=== PATIENT | female | born 1965 | race American Indian/Alaskan Native ===

== ENCOUNTER 2017-12-23 19:50 | Emergency (ER) | payer MEDICAID ==
[2017-12-23] MEDS ORDERED: Acetaminophen/HYDROcodone 325-10 MG Tab PO ONE (19:51)
[2017-12-23 20:05] VITALS: BP 129/88
--- NOTE | 2017-12-23 20:13 | EDM.PDOC ---
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: Reports: NSAIDS Left Knee Pain Score (Numeric/FACES): 9 - Related Data Allergies Allergy/AdvReac Type Severity Reaction Status Date / Time No Known Allergies Allergy Verified 12/23/17 20:06 Home Meds: Home Meds Multivitamin [Multi Vitamin Daily] 1 each PO DAILY 07/20/13 [History] Ranitidine [Zantac] 150 mg PO ASDIRECTED 11/07/15 [History] Calcium Carbonate/Vitamin D3 [Calcium 1,000 + D3 Caplet] 2 tab PO DAILY [History] Past Medical History Other HEENT History: wears glasses Gastrointestinal History: Reports: Other (See Below) Other Gastrointestinal History: hernia, no repair, gallstones - Past Surgical History Female Surgical History: Reports: Tubal Ligation Review of Systems - Review of Systems Review Of Systems: ROS reveals no pertinent complaints other than HPI. ED EXAM, GENERAL - Physical Exam Exam: See Below Exam Limited By: No Limitations General Appearance: Alert, WD/WN, Mild Distress, Moderate Distress Ears: Hearing Grossly Normal Throat/Mouth: Normal Voice, No Airway Compromise Head: Atraumatic Neck: Non-Tender, Full Range of Motion Respiratory/Chest: No Respiratory Distress Cardiovascular: Regular Rate, Rhythm GI/Abdominal: Soft, Non-Tender Extremities: Limited Range of Motion, Other (left knee swollen discoloured, tender R/P, NV wnl, gait limited to pain) Neurological: Alert, Oriented, Normal Cognition, No Motor/Sensory Deficits Psychiatric: Tearful Skin Exam: Warm, Dry, Normal Color Lymphatic: No Adenopathy Course - Vital Signs Last Recorded V/S: Last Vital Signs Temp 36.6 C 12/23/17 20:00 Pulse 96 12/23/17 20:00 Resp 14 12/23/17 20:00 BP 129/88 12/23/17 20:00 Pulse Ox 98 12/23/17 20:00 - Orders/Labs/Meds Meds: Medications Discontinued Medications Generic Name Dose Route Start Last Admin Trade Name Freq PRN Reason Stop Dose Admin Hydrocodone Bitart/Acetaminophen 1 tab 12/23/17 20:10 12/23/17 20:17 [place] 325-10 Mg PO 12/23/17 20:11 1 tab ONETIME ONE Administration - Re-Assessments/Exams Free Text/Narrative Re-Assessment/Exam: 12/23/17 21:08 results discussed with pt Departure - Departure Time of Disposition: 21:09 Disposition: Home, Self-Care 01 Condition: Good Clinical Impression: Knee effusion, left Contusion of knee, left Qualifiers: Encounter type: initial encounter Qualified Code(s): S80.02XA - Contusion of left knee, initial encounter - Discharge Information Instructions: Knee Effusion, [id number] Forms: ED Department Discharge Additional Instructions: 1) see clinic tomorrow for MRI SCAN for knee effusion OR ORTHOPEDIC REFERRAL 2) elevate leg as much as possible next 3 to 4 days 3) wear knee immobilizer and use crutches
[2017-12-23] MEDS: Acetaminophen/HYDROcodone 325-10 MG Tab PO ONE (20:17)
[2017-12-23] MEDS ORDERED: Acetaminophen/HYDROcodone 325-10 MG Tab ONE (21:23)
== END 2017-12-23 21:30 | disposition home or self-care (01) ==
LOC: DL.ED 19:50
DX: S80.02XA Contusion of left knee, initial encounter (principal); M25.462 Effusion, left knee; Z79.899 Other long term (current) drug therapy; W01.0XXA Fall on same level from slipping, tripping and stumbling without subsequent striking against object, initial encounter
CPT/HCPCS: 73562; 99283; A9270; 99282

== ENCOUNTER 2019-12-17 15:29 | Emergency (ER) | payer OTHER ==
[2019-12-17 15:51] VITALS: BP 147/86; PULSE 110
[2019-12-17] MEDS ORDERED: Triamcinolone Acetonide 40 MG/ML 1 ML SDV IM ONE (16:11)
--- NOTE | 2019-12-17 16:53 | EDM.PDOC ---
Scribed by Paola Stokes 12/17/19 1614 for Lizy Medina NP ED HPI GENERAL MEDICAL PROBLEM - General Chief Complaint: Skin Complaint Stated Complaint: RASH LEGS AND ARM Time Seen by Provider: 12/17/19 15:58 Source of Information: Reports: Patient, RN, RN Notes Reviewed History Limitations: Reports: No Limitations - History of Present Illness INITIAL COMMENTS - FREE TEXT/NARRATIVE: Patient presents to ER with complaint of rash to legs and arms. States was cutting grass on and developed rash. She has been using Benadryl, hydrocortisone cream and allergy pills. Continues to itch. No open areas. Denies health problems except hypertension. Onset Date: 12/15/19 Location: Reports: Generalized Quality: Reports: Other (itching') Severity: Moderate Improves with: Reports: None Worsens with: Reports: None Associated Symptoms: Reports: No Other Symptoms - Related Data Allergies Allergy/AdvReac Type Severity Reaction Status Date / Time No Known Allergies Allergy Verified 12/17/19 15:51 Home Meds: Home Meds Multivitamin [Multi Vitamin Daily] 1 each PO DAILY 07/20/13 [History] Ranitidine [Zantac] 150 mg PO ASDIRECTED 11/07/15 [History] Calcium Carbonate/Vitamin D3 [Calcium 1,000 + D3 Caplet] 2 tab PO DAILY [History] Ergocalciferol (Vitamin D2) [Vitamin D2] 1 cap PO ASDIRECTED 04/03/19 [History] Past Medical History HEENT History: Reports: Impaired Vision Other HEENT History: wears glasses Cardiovascular History: Reports: None Respiratory History: Reports: None Gastrointestinal History: Reports: Cholelithiasis, Other (See Below) Other Gastrointestinal History: hernia, no repair Genitourinary History: Reports: UTI, Recurrent 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: Musculoskeletal History: Reports: Arthritis Neurological History: Reports: None Psychiatric History: Reports: None Endocrine/Metabolic History: Reports: None Hematologic History: Reports: None Immunologic History: Reports: None Oncologic (Cancer) History: Reports: None Dermatologic History: Reports: None - Infectious Disease History Infectious Disease History: Reports: None - Past Surgical History Head Surgeries/Procedures: Reports: None Female Surgical History: Reports: Tubal Ligation Social & Family History - Family History Family Medical History: Noncontributory - Tobacco Use Smoking Status *Q: Never Smoker Second Hand Smoke Exposure: No - Caffeine Use Caffeine Use: Reports: None Other Caffeine Use: 5cups/day - Recreational Drug Use Recreational Drug Use: No - Living Situation & Occupation Living situation: Reports: with Family ED ROS GENERAL - Review of Systems Review Of Systems: Comprehensive ROS is negative, except as noted in HPI. ED EXAM, SKIN/RASH Exam: See Below Exam Limited By: No Limitations General Appearance: Alert, WD/WN, No Apparent Distress Eye Exam: Bilateral Eye: EOMI, Normal Inspection, PERRL Ears: Normal External Exam, Normal Canal, Hearing Grossly Normal, Normal TMs Nose: Normal Inspection, Normal Mucosa, No Blood Throat/Mouth: Normal Inspection, Normal Lips, Normal Teeth, Normal Gums, Normal Oropharynx, Normal Voice, No Airway Compromise Head: Atraumatic, Normocephalic Neck: Normal Inspection, Supple, Non-Tender, Full Range of Motion Respiratory/Chest: No Respiratory Distress, Lungs Clear, Normal Breath Sounds, No Accessory Muscle Use, Chest Non-Tender Cardiovascular: Normal Peripheral Pulses, Regular Rate, Rhythm, No Edema, No Gallop, No JVD, No Murmur, No Rub GI/Abdominal: Normal Bowel Sounds, Soft, Non-Tender, No Organomegaly, No Distention, No Abnormal Bruit, No Mass (Female) Exam: Deferred Rectal (Female) Exam: Deferred Back Exam: Normal Inspection, Full Range of Motion, NT Extremities: Normal Inspection, Normal Range of Motion, Non-Tender, No Pedal Edema, Normal Capillary Refill Neurological: Alert, Oriented, CN II-XII Intact, Normal Cognition, Normal Gait, Normal Reflexes, No Motor/Sensory Deficits Psychiatric: Normal Affect, Normal Mood Skin: Other (erythematous rash--prutitis lower legs bilaterally and lower arms bilaterally.) Lymphatic: No Adenopathy Course - Vital Signs Last Recorded V/S: Last Vital Signs Temp 36.4 C 12/17/19 15:48 Pulse 110 H 12/17/19 15:48 Resp 16 12/17/19 15:48 BP 147/86 H 12/17/19 15:48 Pulse Ox 97 12/17/19 15:48 - Orders/Labs/Meds Meds: Medications Discontinued Medications Generic Name Dose Route Start Last Admin Trade Name Freq PRN Reason Stop Dose Admin Triamcinolone Acetonide 40 mg 12/17/19 16:11 Kenalog-40 IM 12/17/19 16:12 ONETIME ONE Departure - Departure Time of Disposition: 16:30 Disposition: Home, Self-Care 01 Condition: Fair Clinical Impression: Contact dermatitis due to poison medina - Discharge Information *PRESCRIPTION DRUG MONITORING PROGRAM REVIEWED*: No *COPY OF PRESCRIPTION DRUG MONITORING REPORT IN PATIENT JENY: No Instructions: Poison Medina Dermatitis, [id number], Poison [place] Dermatitis, Easy- to-Read Forms: ED Department Discharge Additional Instructions: Continue using Benadryl and Hydrocortisone cream, Calmine lotion May apply cool packs to the area as may decrease itching Follow up with your primary care facility if no improvement Sepsis Event Note - Evaluation Sepsis Screening Result: No Definite Risk - Focused Exam Vital Signs: Vital Signs Temp Pulse Resp BP Pulse Ox 12/17/19 15:48 36.4 C 110 H 16 147/86 H 97 Date Exam was Performed: 12/17/19 Time Exam was Performed: 16:14 I have read and agree with the documentation that has been completed regarding this visit. By signing this record, I attest that the documentation was completed in my physical presence and is an accurate record of the encounter.
== END 2019-12-17 16:29 | disposition home or self-care (01) ==
LOC: DL.ED 15:29
DX: L23.7 Allergic contact dermatitis due to plants, except food (principal); Z79.899 Other long term (current) drug therapy
CPT/HCPCS: 96372; 99282; J3301; 99283

== ENCOUNTER 2020-10-19 23:46 | Emergency (ER) | payer MEDICAID, OTHER ==
[2020-10-20 00:38] VITALS: BP 163/123; PULSE 109
--- NOTE | 2020-10-20 01:07 | EDM.PDOC ---
ED HPI GENERAL MEDICAL PROBLEM - General Chief Complaint: Drug or Alcohol Abuse Stated Complaint: DRANK SOMETHING FUNNY, FEELS WEIRD, DIZZY Time Seen by Provider: 10/20/20 00:27 Source of Information: Reports: Patient, RN History Limitations: Reports: No Limitations - History of Present Illness INITIAL COMMENTS - FREE TEXT/NARRATIVE: 55-year-old female who presents with her significant other requesting for a drug screen. Patient reports 48 hours ago, she was drinking beer at a bar with a friend and some other strangers. She states after drinking her third beer, she felt dizzy with numbness and tingling in her hands and feet. She states her friend took her home and she rested. 24 hours ago, she started having a headache, feeling tired, anxious and unable to sleep. She reports she feels like somebody put something in her drink. She denies any history of drug use. She reports leaving her drink unattended when at the bar to use the bathroom. She denies any fever, chills, shortness of breath, chest pain, palpitation, abdominal problems at this time. Frontal Headache Pain Score (Numeric/FACES): 8 - Related Data Allergies Allergy/AdvReac Type Severity Reaction Status Date / Time No Known Allergies Allergy Verified 10/20/20 00:39 Home Meds: Home Meds Multivitamin [Multi Vitamin Daily] 1 each PO DAILY 07/20/13 [History] Ranitidine [Zantac] 150 mg PO ASDIRECTED 11/07/15 [History] Calcium Carbonate/Vitamin D3 [Calcium 1,000 + D3 Caplet] 2 tab PO DAILY 12/23/17 [History] Ergocalciferol (Vitamin D2) [Vitamin D2] 1 cap PO ASDIRECTED 04/03/19 [History] Past Medical History HEENT History: Reports: Impaired Vision Other HEENT History: wears glasses Cardiovascular History: Reports: None Respiratory History: Reports: None Gastrointestinal History: Reports: Cholelithiasis, Other (See Below) Other Gastrointestinal History: hernia, no repair Genitourinary History: Reports: UTI, Recurrent 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: Musculoskeletal History: Reports: Arthritis Neurological History: Reports: None Psychiatric History: Reports: None Endocrine/Metabolic History: Reports: None Hematologic History: Reports: None Immunologic History: Reports: None Oncologic (Cancer) History: Reports: None Dermatologic History: Reports: None - Infectious Disease History Infectious Disease History: Reports: None - Past Surgical History Head Surgeries/Procedures: Reports: None GI Surgical History: Reports: Cholecystectomy Female Surgical History: Reports: Tubal Ligation Social & Family History - Family History Family Medical History: No Pertinent Family History - Tobacco Use Tobacco Use Status *Q: Current Every Day Tobacco User Years of Tobacco use: 38 Packs/Tins Daily: 0.1 - Caffeine Use Caffeine Use: Reports: Coffee, Soda Other Caffeine Use: 5cups/day - Alcohol Use Date of Last Drink: 10/18/20 - Recreational Drug Use Recreational Drug Use: No - Living Situation & Occupation Living situation: Reports: with Family ED ROS GENERAL - Review of Systems Review Of Systems: Comprehensive ROS is negative, except as noted in HPI. ED EXAM, GENERAL - Physical Exam Exam: See Below Exam Limited By: No Limitations General Appearance: Alert, No Apparent Distress Eye Exam: Bilateral Eye: Normal Inspection Nose: Normal Inspection Throat/Mouth: Normal Oropharynx, No Airway Compromise Head: Atraumatic, Normocephalic Neck: Normal Inspection, Supple Respiratory/Chest: No Respiratory Distress, Lungs Clear, Normal Breath Sounds, No Accessory Muscle Use, Chest Non-Tender Cardiovascular: Normal Peripheral Pulses, No Edema, No Gallop, No JVD, No Murmur, No Rub, Tachycardia GI/Abdominal: Normal Bowel Sounds, Soft, Non-Tender, No Organomegaly, No Distention, No Abnormal Bruit, No Mass Neurological: Alert, Oriented (x3), CN II-XII Intact Psychiatric: Normal Affect, Normal Mood Skin Exam: Warm, Intact Course - Vital Signs Last Recorded V/S: Last Vital Signs Temp 96 F L 10/20/20 00:16 Pulse 109 H 10/20/20 00:16 Resp 18 10/20/20 00:16 BP 163/123 H 10/20/20 00:16 Pulse Ox 100 10/20/20 00:16 - Orders/Labs/Meds Orders: Active Orders 24 hr Category Date Time Status ETOH [ETHANOL BLOOD MEDICAL] [CHEM] Stat Lab 10/20/20 00:42 Received Labs: Laboratory Tests 10/20/20 Range/Units 00:27 Urine Opiates Screen Negative (NEGATIVE) Ur Oxycodone Screen Negative (NEGATIVE) Urine Methadone Screen Negative (NEGATIVE) Ur Barbiturates Screen Negative (NEGATIVE) U Tricyclic Antidepress Negative (NEGATIVE) Ur Phencyclidine Scrn Negative (NEGATIVE) Ur Amphetamine Screen Positive H (NEGATIVE) U Methamphetamines Scrn Positive H (NEGATIVE) Urine MDMA Screen Negative (NEGATIVE) U Benzodiazepines Scrn Negative (NEGATIVE) Urine Cocaine Screen Negative (NEGATIVE) U Marijuana (THC) Screen Negative (NEGATIVE) - Re-Assessments/Exams Free Text/Narrative Re-Assessment/Exam: Reviewed exam findings with patient. Strongly advised to avoid drinking around crowds of people she does not know. Patient verbalized understanding. 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 Also recommended sleep hygiene. Follow-up with PCP in the upcoming week. Sepsis Event Note (ED) - Evaluation Sepsis Screening Result: No Definite Risk - Focused Exam Vital Signs: Vital Signs Temp Pulse Resp BP Pulse Ox 10/20/20 00:16 96 F L 109 H 18 163/123 H 100 - My Orders Last 24 Hours: My Active Orders 10/20/20 00:42 ETOH [ETHANOL BLOOD MEDICAL] [CHEM] Stat - Assessment/Plan Last 24 Hours: My Active Orders 10/20/20 00:42 ETOH [ETHANOL BLOOD MEDICAL] [CHEM] Stat
== END 2020-10-20 01:14 | disposition home or self-care (01) ==
LOC: DL.ED 23:46
DX: F15.23 Other stimulant dependence with withdrawal (principal); Z72.0 Tobacco use
CPT/HCPCS: 36415; 80305-QW; 80307; 99282; 99284

== ENCOUNTER 2021-03-08 05:32 | Day surgery (SDC) | payer MEDICAID ==
[2021-03-08] MEDS ORDERED: Midazolam 1 MG/ML 2 ML SDV IV ONE ×7 (05:33→06:50)
[2021-03-08] MEDS ORDERED: fentaNYL 100 MCG/2 ML SDV IV ONE ×6 (05:33→06:55)
[2021-03-08] MEDS ORDERED: Dextrose 5%-0.45% NaCl 1,000 ML IV SCH (06:00)
[2021-03-08] MEDS ORDERED: fentaNYL 100 MCG/2 ML SDV ONE (06:13)
[2021-03-08] MEDS ORDERED: Midazolam 1 MG/ML 2 ML SDV ONE (06:13)
--- NOTE | 2021-03-08 08:23 | OR ---
DATE: 03/08/2021 PROCEDURES: Total colonoscopy, NBI, and multiple cold snare polypectomies. INSTRUMENT USED: PCF-H190 Olympus video colonoscope. PREMEDICATIONS: Fentanyl 175 mcg intravenous, Versed 4 mg intravenous, nasal O2 cannula. The procedure was done under pulse oximetry, BP recording, and cafeteria monitor. INDICATION: The patient with intermittent diarrhea, long-term. Colonoscopic examination is done for detection of any polypoid lesions and removal, endoscopic hemostasis therapy if needed. DESCRIPTION OF PROCEDURE: Initial rectal exam showed small external hemorrhoidal tags. Rigid anoscopy was normal. The colonoscope was passed with ease up to the ileocecal area. Photographs were taken of the cecum showing couple of diminutive polyps. Photographs were taken. Cold snare polypectomies were done. The tissues were retrieved and sent for histopathology. In the proximal sigmoid and distal descending colon, 3 to 5 mm sized benign-appearing polyps were noted, NBI views were obtained, photographs were obtained, cold snare polypectomies were done, the tissues were retrieved and sent for histopathology. No bleeding was noted from any of the visualized areas at the commencement of the examination. The bowel preparation was found to be adequate, [place] scale 3 in all the areas, total score 9. No stricture. No vascular ectasia. No large isolated ulcerations seen. No evidence of diffuse inflammatory bowel disease in the form of friability, contact bleeding, or ulcerations. Probing the proximal sides of folds and flexures using adequate distention and clearing up the stool material, withdrawal of the scope was made. Diminutive benign-appearing polyps couple of them were noted at the ascending colon, and couple of them in the descending colon, cold snare polypectomies were done, the tissues were retrieved and sent for histopathology. No bleeding was noted from any of the visualized areas at the completion of examination. IMPRESSION: 1. External hemorrhoids. 2. Multiple colonic polyps. The patient tolerated the procedure well. [facility] /[id number]
[2021-03-08 10:03] VITALS: BP 130/82; PULSE 59
== END 2021-03-08 09:19 | disposition home or self-care (01) ==
LOC: DL.ENDO 05:32
PROVIDERS: ATTEND Internal Medicine Gastroenterology
DX: D12.0 Benign neoplasm of cecum (principal); D12.5 Benign neoplasm of sigmoid colon; D12.2 Benign neoplasm of ascending colon; D12.4 Benign neoplasm of descending colon; K64.4 Residual hemorrhoidal skin tags; Z80.0 Family history of malignant neoplasm of digestive organs
CPT/HCPCS: 45385; J2250; J3010; J7042

== ENCOUNTER 2021-06-03 10:28 | Emergency (ER) | payer OTHER, MEDICAID ==
--- NOTE | 2021-06-03 10:54 | EDM.PDOC ---
ED HPI GENERAL MEDICAL PROBLEM - General Chief Complaint: Upper Extremity Injury/Pain Stated Complaint: WORKERS COMP SLIPPED AND HURT RIGHT WRIST Time Seen by Provider: 06/03/21 10:53 Source of Information: Reports: Patient, Old Records, RN, RN Notes Reviewed History Limitations: Reports: No Limitations - History of Present Illness INITIAL COMMENTS - FREE TEXT/NARRATIVE: Pt presents to ER with c/o right wrist injury sustained when she fell at work this morning. Pt c/o pain and laceration to the right wrist. Denies any other injury. Pt states she believes she is due for a Tetanus vaccine. Onset: Today, Sudden Duration: Constant Location: Reports: Upper Extremity, Right Quality: Reports: Ache Severity: Moderate Improves with: Reports: Immobilization, Rest Worsens with: Reports: Other (Palpation), Movement Context: Reports: Other (Fall) Associated Symptoms: Reports: No Other Symptoms Right Wrist Pain Score (Numeric/FACES): 8 - Related Data Allergies Allergy/AdvReac Type Severity Reaction Status Date / Time No Known Allergies Allergy Verified 03/07/21 09:41 Home Meds: Home Meds Calcium Carbonate/Vitamin D3 [Calcium 1,000 + D3 Caplet] 2 tab PO DAILY 12/23/17 [History] Acetaminophen 500 mg PO Q6H PRN 03/07/21 [History] Ferrous Sulfate [Iron] 325 mg PO DAILY 03/07/21 [History] Mv-Mn/Folic Acid/Vit [id number] [Alive Once Daily Women 50 Plus] 1 tab PO DAILY 03/07/21 [History] Naproxen Sodium [Aleve] 220 mg PO ASDIRECTED PRN 03/07/21 [History] QUEtiapine Fumarate [Seroquel Xr] 50 mg PO BEDTIME 03/07/21 [History] buPROPion [buPROPion XL] 150 mg PO DAILY 03/07/21 [History] Past Medical History HEENT History: Reports: Impaired Vision Other HEENT History: wears glasses Cardiovascular History: Reports: Hypertension Respiratory History: Reports: None Gastrointestinal History: Reports: Cholelithiasis, GERD, Other (See Below) Other Gastrointestinal History: hernia, no repair Genitourinary History: Reports: UTI, Recurrent 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: , 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 Musculoskeletal History: Reports: Arthritis, Fracture, Gout, Other (See Below) Other Musculoskeletal History: polyarthralgia Neurological History: Reports: None Psychiatric History: Reports: Depression Endocrine/Metabolic History: Reports: None Hematologic History: Reports: None Immunologic History: Reports: None Oncologic (Cancer) History: Reports: None Dermatologic History: Reports: None - Infectious Disease History Infectious Disease History: Reports: Chicken Pox, Novel Coronavirus - Past Surgical History Head Surgeries/Procedures: Reports: None Cardiovascular Surgical History: Reports: None GI Surgical History: Reports: Cholecystectomy, Colonoscopy, EGD Female Surgical History: Reports: Tubal Ligation Endocrine Surgical History: Reports: None Oncologic Surgical History: Reports: None Social & Family History - Family History Family Medical History: No Pertinent Family History - Caffeine Use Caffeine Use: Reports: Coffee, Soda Other Caffeine Use: 5cups/day - Living Situation & Occupation Living situation: Reports: with Family Occupation: Employed Review of Systems - Review of Systems Review Of Systems: Comprehensive ROS is negative, except as noted in HPI. ED EXAM, GENERAL - Physical Exam Exam: See Below Exam Limited By: No Limitations General Appearance: Alert, WD/WN, No Apparent Distress Throat/Mouth: Normal Voice Head: Atraumatic, Normocephalic Neck: Normal Inspection, Full Range of Motion Respiratory/Chest: No Respiratory Distress Cardiovascular: Normal Peripheral Pulses Extremities: Normal Capillary Refill, Arm Pain (Right wrist tender to palpation with ROM limited by pain, 2.5cm cresent laceration w/no active bleeding, no FB.). No: Joint Swelling Neurological: Alert, Oriented, No Motor/Sensory Deficits Psychiatric: Normal Mood Skin Exam: Warm, Dry, Normal Color ED TRAUMA EXTREMITY PROCEDURES - Laceration/Wound Repair Right Distal Arm Lac/Wound Length In cm: 2.5 Appearance: Subcutaneous, Irregular, Clean Distal NVT: Neuro & Vascular Intact, No Tendon Injury Anesthetic Type: Local Local Anesthesia - Lidocaine (Xylocaine): 1% Plain Local Anesthetic Volume: 5cc Skin Prep: Chlorhexidine (Hibiciens), Saline, Sterile Drape Saline Irrigation (cc's): 500 Exploration/Debridement/Repair: Wound Explored, In a Bloodless Field, Explored to Base, Minimal Debridement, Minimally Undermined Closed With: Sutures Suture Size: 4-0 # of Sutures: 6 Suture Type: Nylon, Interrupted Drain Placement: No Sterile Dressing Applied: Nurse Tetanus Status Addressed: Yes Complications: No - Splinting Right Upper Extremity Splint Site: Rt wrist Pre-Procedure NV Status: Normal Post-Procedure NV Status: Normal Splint Material: Velcro Splint Design: Volar Applied & Form Fitted By: Nurse Provider Post-Splint Application NV Check: NV Status Normal, Good Position Complications: No Course - Vital Signs Last Recorded V/S: Last Vital Signs Temp 97.1 F 06/03/21 10:58 Pulse 81 06/03/21 10:58 Resp 14 06/03/21 10:58 BP 141/89 H 06/03/21 10:58 Pulse Ox 97 06/03/21 10:58 - Orders/Labs/Meds Orders: Active Orders 24 hr Category Date Time Status Vaccine to be Administered/Admin Charge [RC] ASDIRECTED Care 06/03/21 10:55 Active Wrist Comp Min 3V Rt [CR] Stat Exams 06/03/21 10:54 Taken Acetaminophen [TylenoL] Med 06/03/21 12:06 Once 650 mg PO NOW ONE Ibuprofen [Motrin] Med 06/03/21 12:06 Once 600 mg PO ONETIME ONE DME for Discharge [COMM] Routine Oth 06/03/21 12:05 Ordered Meds: Medications Discontinued Medications Generic Name Dose Route Start Last Admin Trade Name Freq PRN Reason Stop Dose Admin Bacitracin 1 dose 06/03/21 10:56 Bacitracin Oint 1 Gm U/D Packet TOP 06/03/21 10:57 ONETIME ONE Diphtheria/Tetanus/Acell Pertussis 0.5 ml 06/03/21 10:55 Diphtheria,Pertussis(Acell),Tetanus Vaccine 0.5 Ml Syringe IM 06/03/21 10:56 .ONCE ONE Lidocaine HCl 30 ml 06/03/21 10:56 Lidocaine 1% 30 Ml Sdv INJECT 06/03/21 10:57 ONETIME ONE - Radiology Interpretation Free Text/Narrative:: XR Right Wrist: no fracture per Radiologist. Departure - Departure Time of Disposition: 12:10 Disposition: Home, Self-Care 01 Condition: Good Clinical Impression: Work related injury Laceration of right forearm Qualifiers: Encounter type: initial encounter Qualified Code(s): S51.811A - Laceration without foreign body of right forearm, initial encounter Right wrist sprain Qualifiers: Encounter type: initial encounter Qualified Code(s): S63.501A - Unspecified sprain of right wrist, initial encounter Contusion of right upper extremity Qualifiers: Encounter type: initial encounter Qualified Code(s): S40.021A - Contusion of right upper arm, initial encounter - Discharge Information *PRESCRIPTION DRUG MONITORING PROGRAM REVIEWED*: Not Applicable *COPY OF PRESCRIPTION DRUG MONITORING REPORT IN PATIENT JENY: Not Applicable Instructions: Laceration Care, Adult, Contusion, [id number], Wrist Sprain, Adult Forms: ED Department Discharge Additional Instructions: Wear wrist splint for 7 to 10 days. May remove to sleep and shower. Follow up in clinic in 7 to 10 days for suture removal. Use Tylenol or Ibuprofen as needed for pain. Follow directions on label for dosing and precautions. Sepsis Event Note (ED) - Focused Exam Vital Signs: Vital Signs Temp Pulse Resp BP Pulse Ox 06/03/21 10:58 97.1 F 81 14 141/89 H 97 - My Orders Last 24 Hours: My Active Orders 06/03/21 10:54 Wrist Comp Min 3V Rt [CR] Stat 06/03/21 10:55 Vaccine to be Administered/Admin Charge [RC] ASDIRECTED 06/03/21 12:05 DME for Discharge [COMM] Routine 06/03/21 12:06 Acetaminophen [TylenoL] 650 mg PO NOW ONE Ibuprofen [Motrin] 600 mg PO ONETIME ONE - Assessment/Plan Last 24 Hours: My Active Orders 06/03/21 10:54 Wrist Comp Min 3V Rt [CR] Stat 06/03/21 10:55 Vaccine to be Administered/Admin Charge [RC] ASDIRECTED 06/03/21 12:05 DME for Discharge [COMM] Routine 06/03/21 12:06 Acetaminophen [TylenoL] 650 mg PO NOW ONE Ibuprofen [Motrin] 600 mg PO ONETIME ONE
[2021-06-03] MEDS ORDERED: Diphtheria,Pertussis(Acell),Tetanus Vaccine 0.5 ML Syringe IM ONE (10:55)
[2021-06-03] MEDS ORDERED: Bacitracin Oint 1 GM U/D Packet TOP ONE (10:56)
[2021-06-03] MEDS ORDERED: Lidocaine 1% 30 ML SDV INJECT ONE (10:56)
[2021-06-03 11:01] VITALS: BP 141/89; PULSE 81
[2021-06-03] MEDS ORDERED: Acetaminophen 325 MG Tab PO ONE (12:06)
[2021-06-03] MEDS ORDERED: Ibuprofen 600 MG Tab PO ONE (12:06)
[2021-06-03] MEDS ORDERED: Ibuprofen 600 MG Tab ONE (12:16)
--- NOTE | 2021-06-03 12:17 | CR ---
EXAMINATION: Wrist Comp Min 3V Rt SEX: Female AGE: 56 years CLINICAL HISTORY: 56-year-old female injured right wrist (fall). Interpretation: Generalized osteopenia consistent with age and gender. Mild soft tissue swelling. Early arthritic changes (reactive sclerosis carpal metacarpal joint base of the thumb. No sign of right wrist fracture or dislocation. Distal right radius/ulna and metacarpals unremarkable. No foreign bodies. CONCLUSION: Mild soft tissue trauma. Early arthritis. No fracture or dislocation right wrist.
== END 2021-06-03 12:26 | disposition home or self-care (01) ==
LOC: DL.ED 10:28
DX: S51.811A Laceration without foreign body of right forearm, initial encounter (principal); S63.501A Unspecified sprain of right wrist, initial encounter; I10 Essential (primary) hypertension; Z23 Encounter for immunization; Z79.899 Other long term (current) drug therapy; W01.0XXA Fall on same level from slipping, tripping and stumbling without subsequent striking against object, initial encounter; Y92.89 Other specified places as the place of occurrence of the external cause; Y99.0 Civilian activity done for income or pay
CPT/HCPCS: 12001; 73110; 90471; 90715; 99283; A9270

== ENCOUNTER 2021-08-03 09:56 | Emergency (ER) | payer MEDICAID, OTHER ==
--- NOTE | 2021-08-03 10:13 | EDM.PDOC ---
ED HPI GENERAL MEDICAL PROBLEM - General Chief Complaint: Behavioral/Psych Stated Complaint: AMBULANCE Time Seen by Provider: 08/03/21 10:13 Source of Information: Reports: Patient, EMS, Old Records, RN, RN Notes Reviewed History Limitations: Reports: No Limitations - History of Present Illness INITIAL COMMENTS - FREE TEXT/NARRATIVE: Pt arrives to ER from home by [facility] with c/o drinking alcohol last night, then woke this morning with very dry mouth and became anxious with hyperventilation, then developed numbness and tingling of both hands, and around her mouth. Pt states she nearly fainted twice. Pt began to worry that she could be having a stroke and became even more anxious. Now upon arrival to the ER she states that she feels like she is getting back to normal and believes she had a panic attack. Denies chest pain, syncope, or unilateral weakness. Onset: Today, Gradual Duration: Resolved Prior to Arrival Location: Reports: Face, Upper Extremity, Left, Upper Extremity, Right Quality: Reports: Other (Denies pain) Severity: Moderate Improves with: Reports: None Worsens with: Reports: None Associated Symptoms: Reports: No Other Symptoms - Related Data Allergies Allergy/AdvReac Type Severity Reaction Status Date / Time No Known Allergies Allergy Verified 08/03/21 10:14 Home Meds: Home Meds Calcium Carbonate/Vitamin D3 [Calcium 1,000 + D3 Caplet] 2 tab PO DAILY 12/23/17 [History] Acetaminophen 500 mg PO Q6H PRN 03/07/21 [History] Ferrous Sulfate [Iron] 325 mg PO DAILY 03/07/21 [History] Mv-Mn/Folic Acid/Vit [id number] [Alive Once Daily Women 50 Plus] 1 tab PO DAILY 03/07/21 [History] Naproxen Sodium [Aleve] 220 mg PO ASDIRECTED PRN 03/07/21 [History] QUEtiapine Fumarate [Seroquel Xr] 50 mg PO BEDTIME 03/07/21 [History] buPROPion [buPROPion XL] 150 mg PO DAILY 03/07/21 [History] Past Medical History HEENT History: Reports: Impaired Vision Other HEENT History: wears glasses Cardiovascular History: Reports: Hypertension Respiratory History: Reports: None Gastrointestinal History: Reports: Cholelithiasis, GERD, Other (See Below) Other Gastrointestinal History: hernia, no repair Genitourinary History: Reports: UTI, Recurrent 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: , 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 Musculoskeletal History: Reports: Arthritis, Fracture, Gout, Other (See Below) Other Musculoskeletal History: polyarthralgia Neurological History: Reports: None Psychiatric History: Reports: Depression Endocrine/Metabolic History: Reports: None Hematologic History: Reports: None Immunologic History: Reports: None Oncologic (Cancer) History: Reports: None Dermatologic History: Reports: None - Infectious Disease History Infectious Disease History: Reports: Chicken Pox, Novel Coronavirus - Past Surgical History Head Surgeries/Procedures: Reports: None Cardiovascular Surgical History: Reports: None GI Surgical History: Reports: Cholecystectomy, Colonoscopy, EGD Female Surgical History: Reports: Tubal Ligation Endocrine Surgical History: Reports: None Oncologic Surgical History: Reports: None Social & Family History - Family History Family Medical History: No Pertinent Family History - Tobacco Use Tobacco Use Status *Q: Unknown Ever Used Tobacco - Caffeine Use Caffeine Use: Reports: None Other Caffeine Use: 5cups/day - Alcohol Use Alcohol Use History: Yes Alcohol Use Frequency: Socially - Living Situation & Occupation Living situation: Reports: with Family Occupation: Employed ED ROS GENERAL - Review of Systems Review Of Systems: Comprehensive ROS is negative, except as noted in HPI. ED EXAM, GENERAL - Physical Exam Exam: See Below Exam Limited By: No Limitations General Appearance: Alert, WD/WN, No Apparent Distress, Anxious Eye Exam: Bilateral Eye: EOMI, Normal Inspection, PERRL Ears: Normal External Exam, Hearing Grossly Normal Nose: Normal Inspection, Normal Mucosa, No Blood Throat/Mouth: Normal Voice, No Airway Compromise, Other (Dry oral mucosa) Head: Atraumatic, Normocephalic Neck: Normal Inspection, Supple, Non-Tender, Full Range of Motion. No: Lymphadenopathy (L), Lymphadenopathy (R) Respiratory/Chest: No Respiratory Distress, Lungs Clear, Normal Breath Sounds, No Accessory Muscle Use, Chest Non-Tender Cardiovascular: Regular Rate, Rhythm, No Edema GI/Abdominal: Normal Bowel Sounds, Soft, Non-Tender, No Organomegaly, No Distention, No Abnormal Bruit, No Mass. No: Guarding, Rigid, Rebound Back Exam: Normal Inspection Extremities: Normal Inspection, Normal Range of Motion, Non-Tender, Normal Capillary Refill, No Pedal Edema Neurological: Alert, Oriented, CN II-XII Intact, Normal Cognition, Normal Gait, No Motor/Sensory Deficits Psychiatric: Normal Affect, Anxious Skin Exam: Warm, Dry, Intact, Normal Color, No Rash Course - Vital Signs Last Recorded V/S: Last Vital Signs Temp 97.9 F 08/03/21 10:14 Pulse 98 08/03/21 10:14 Resp 20 08/03/21 10:14 BP 129/97 H 08/03/21 10:14 Pulse Ox 96 08/03/21 10:14 - Orders/Labs/Meds Orders: Active Orders 24 hr Category Date Time Status Peripheral IV Care [RC] . DIRECTED Care 08/03/21 10:15 Active COVID-19/FLU A+B/RSV [MOLEC] Stat Lab 08/03/21 12:51 Received UA W/MICROSCOPIC [URIN] Stat Lab 08/03/21 12:51 Results Sodium Chloride 0.9% [Saline Flush] Med 08/03/21 10:14 Active 10 ml FLUSH ASDIRECTED PRN Peripheral IV Insertion Adult [OM.PC] Stat Oth 08/03/21 10:14 Ordered Medication Orders Sodium Chloride (Sodium Chloride 0.9% 10 Ml Syringe) 10 ml FLUSH ASDIRECTED PRN PRN Reason: Keep Vein Open Last Admin: 08/03/21 10:49 Dose: 10 ml Documented by: [id number] Labs: Laboratory Tests 08/03/21 08/03/21 08/03/21 Range/Units 10:25 10:25 12:51 WBC 9.7 (5.0-10.0) 10^3/uL RBC 5.18 (4.2-5.4) 10^6/uL Hgb 14.4 D (12.0-16.0) g/dL Hct 42.8 (37.0-47.0) % MCV 82.6 (80-100) fL MCH 27.8 (27.0-34.0) pg MCHC 33.6 (33.0-35.0) g/dL Plt Count 361 (150-450) 10^3/uL Neut % (Auto) 72.5 (42.2-75.2) % Lymph % (Auto) 21.9 (20.5-50.1) % Clinch % (Auto) 4.7 (2-8) % Eos % (Auto) 0.4 L (1.0-3.0) % Baso % (Auto) 0.5 (0.0-1.0) % Sodium 143 (136-145) mmol/L Potassium 3.4 L (3.5-5.1) mmol/L Chloride 104 (98-107) mmol/L Carbon Dioxide 24 (21-32) mmol/L Anion Gap 18.4 H (7-13) mEq/L BUN 8 (7-18) mg/dL Creatinine 0.60 (0.55-1.02) mg/dL Est Cr Clr Drug Dosing 99.18 mL/min Estimated GFR (MDRD) > 60 BUN/Creatinine Ratio 13.3 (No establ ref range) Glucose 134 H (70-99) mg/dL Calcium 8.3 L (8.5-10.1) mg/dL Magnesium 2.0 (1.8-2.4) mg/dL Total Bilirubin 0.3 (0.2-1.0) mg/dL AST 28 (15-37) U/L ALT 47 (14-59) U/L Alkaline Phosphatase 118 H (46-116) U/L Troponin I High Sens 6 (<=51) pg/mL Total Protein 7.6 (6.4-8.2) g/dL Albumin 3.7 (3.4-5.0) g/dL Globulin 3.9 Albumin/Globulin Ratio 0.9 Urine Color Yellow (YELLOW) Urine Appearance Clear (CLEAR) Urine pH 6.0 (5.0-9.0) Ur Specific [place] 1.020 (1.005-1.030) Urine Protein 100 H (NEGATIVE) Urine Glucose (UA) Negative (NEGATIVE) Urine Ketones Negative (NEGATIVE) Urine Occult Blood Negative (NEGATIVE) Urine Nitrite Negative (NEGATIVE) Urine Bilirubin Negative (NEGATIVE) Urine Urobilinogen 0.2 (0.2-1.0) mg/dL Ur Leukocyte Esterase Negative (NEGATIVE) Urine Opiates Screen (NEGATIVE) Ur Oxycodone Screen (NEGATIVE) Urine Methadone Screen (NEGATIVE) Ur Barbiturates Screen (NEGATIVE) U Tricyclic Antidepress (NEGATIVE) Ur Phencyclidine Scrn (NEGATIVE) Ur Amphetamine Screen (NEGATIVE) U Methamphetamines Scrn (NEGATIVE) Urine MDMA Screen (NEGATIVE) U Benzodiazepines Scrn (NEGATIVE) Urine Cocaine Screen (NEGATIVE) U Marijuana (THC) Screen (NEGATIVE) Ethyl Alcohol 171 (0) mg/dL 08/03/21 Range/Units 12:51 WBC (5.0-10.0) 10^3/uL RBC (4.2-5.4) 10^6/uL Hgb (12.0-16.0) g/dL Hct (37.0-47.0) % MCV (80-100) fL MCH (27.0-34.0) pg MCHC (33.0-35.0) g/dL Plt Count (150-450) 10^3/uL Neut % (Auto) (42.2-75.2) % Lymph % (Auto) (20.5-50.1) % Clinch % (Auto) (2-8) % Eos % (Auto) (1.0-3.0) % Baso % (Auto) (0.0-1.0) % Sodium (136-145) mmol/L Potassium (3.5-5.1) mmol/L Chloride (98-107) mmol/L Carbon Dioxide (21-32) mmol/L Anion Gap (7-13) mEq/L BUN (7-18) mg/dL Creatinine (0.55-1.02) mg/dL Est Cr Clr Drug Dosing mL/min Estimated GFR (MDRD) BUN/Creatinine Ratio (No establ ref range) Glucose (70-99) mg/dL Calcium (8.5-10.1) mg/dL Magnesium (1.8-2.4) mg/dL Total Bilirubin (0.2-1.0) mg/dL AST (15-37) U/L ALT (14-59) U/L Alkaline Phosphatase (46-116) U/L Troponin I High Sens (<=51) pg/mL Total Protein (6.4-8.2) g/dL Albumin (3.4-5.0) g/dL Globulin Albumin/Globulin Ratio Urine Color (YELLOW) Urine Appearance (CLEAR) Urine pH (5.0-9.0) Ur Specific [place] (1.005-1.030) Urine Protein (NEGATIVE) Urine Glucose (UA) (NEGATIVE) Urine Ketones (NEGATIVE) Urine Occult Blood (NEGATIVE) Urine Nitrite (NEGATIVE) Urine Bilirubin (NEGATIVE) Urine Urobilinogen (0.2-1.0) mg/dL Ur Leukocyte Esterase (NEGATIVE) Urine Opiates Screen Negative (NEGATIVE) Ur Oxycodone Screen Negative (NEGATIVE) Urine Methadone Screen Negative (NEGATIVE) Ur Barbiturates Screen Negative (NEGATIVE) U Tricyclic Antidepress Negative (NEGATIVE) Ur Phencyclidine Scrn Negative (NEGATIVE) Ur Amphetamine Screen Negative (NEGATIVE) U Methamphetamines Scrn Positive H (NEGATIVE) Urine MDMA Screen Negative (NEGATIVE) U Benzodiazepines Scrn Negative (NEGATIVE) Urine Cocaine Screen Negative (NEGATIVE) U Marijuana (THC) Screen Negative (NEGATIVE) Ethyl Alcohol (0) mg/dL Meds: Medications Generic Name Dose Route Start Last Admin Trade Name Freq PRN Reason Stop Dose Admin Sodium Chloride 10 ml 08/03/21 10:14 08/03/21 10:49 Sodium Chloride 0.9% 10 Ml Syringe FLUSH 10 ml ASDIRECTED PRN Administration Keep Vein Open Discontinued Medications Generic Name Dose Route Start Last Admin Trade Name Freq PRN Reason Stop Dose Admin Sodium Chloride 1,000 mls @ 999 mls/hr 08/03/21 10:21 08/03/21 10:49 Normal Saline IV 08/03/21 11:21 999 mls/hr .BOLUS ONE Administration Departure - Departure Time of Disposition: 13:35 Disposition: Home, Self-Care 01 Condition: Good Clinical Impression: Panic type anxiety neurosis, Methamphetamine intoxication Alcohol intoxication Qualifiers: Complication of substance-induced condition: uncomplicated Qualified Code(s): F10.920 - Alcohol use, unspecified with intoxication, uncomplicated - Discharge Information *PRESCRIPTION DRUG MONITORING PROGRAM REVIEWED*: Not Applicable *COPY OF PRESCRIPTION DRUG MONITORING REPORT IN PATIENT JENY: Not Applicable Instructions: Alcohol Intoxication, Panic Attack, Methamphetamines Use Disorder Forms: ED Department Discharge Additional Instructions: Do not drink alcohol or use methamphetamines. Drink plenty of water. Follow up in clinic if anxiety or panic attacks become a more frequent problem. Sepsis Event Note (ED) - Focused Exam Vital Signs: Vital Signs Temp Pulse Resp BP Pulse Ox 08/03/21 10:14 97.9 F 98 20 129/97 H 96 - My Orders Last 24 Hours: My Active Orders 08/03/21 10:14 Sodium Chloride 0.9% [Saline Flush] 10 ml FLUSH ASDIRECTED PRN Peripheral IV Insertion Adult [OM.PC] Stat 08/03/21 10:15 Peripheral IV Care [RC] . DIRECTED 08/03/21 12:51 COVID-19/FLU A+B/RSV [MOLEC] Stat UA W/MICROSCOPIC [URIN] Stat - Assessment/Plan Last 24 Hours: My Active Orders 08/03/21 10:14 Sodium Chloride 0.9% [Saline Flush] 10 ml FLUSH ASDIRECTED PRN Peripheral IV Insertion Adult [OM.PC] Stat 08/03/21 10:15 Peripheral IV Care [RC] . DIRECTED 08/03/21 12:51 COVID-19/FLU A+B/RSV [MOLEC] Stat UA W/MICROSCOPIC [URIN] Stat
[2021-08-03 10:24] VITALS: BP 129/97; PULSE 98
[2021-08-03] MEDS: Sodium Chloride 0.9% 1,000 ML IV ONE (10:49)
[2021-08-03] MEDS: Sodium Chloride 0.9% 10 ML Syringe FLUSH PRN (10:49)
[2021-08-03 10:53] LABS: ANION GAP 18.4 mEq/L (7-13); CHLORIDE,CL 104 mmol/L (98-107); SODIUM,NA 143 mmol/L (136-145)
[2021-08-03 13:30] LABS: AMPHETAMINES,URINE NEGATIVE (NEGATIVE); BARBITURATES,URINE NEGATIVE (NEGATIVE); BENZODIAZEPINE,URINE NEGATIVE (NEGATIVE); MDMA (ECSTASY), URINE NEGATIVE (NEGATIVE); METHADONE,URINE NEGATIVE (NEGATIVE); METHAMPHETAMINES,URINE POSITIVE (NEGATIVE); OPIATES,URINE NEGATIVE (NEGATIVE); OXYCODONE,URINE NEGATIVE (NEGATIVE); PHENCYCLIDINE,URINE NEGATIVE (NEGATIVE); TCA,URINE NEGATIVE (NEGATIVE)
[2021-08-03 13:56] LABS: CORONAVIRUS COVID-19 NAA NEGATIVE (NEGATIVE); RESPIRATORY SYNCYTIAL VIR NAA NEGATIVE (NEGATIVE)
== END 2021-08-03 13:44 | disposition home or self-care (01) ==
LOC: DL.ED 09:56
DX: F41.0 Panic disorder [episodic paroxysmal anxiety] (principal); F10.129 Alcohol abuse with intoxication, unspecified; F15.120 Other stimulant abuse with intoxication, uncomplicated; I10 Essential (primary) hypertension; Z86.16 Personal history of COVID-19; Y90.6 Blood alcohol level of 120-199 mg/100 ml; Z20.822 Contact with and (suspected) exposure to COVID-19
CPT/HCPCS: 0241U; 36415; 80053; 80305; 80307; 81001; 83735; 84484; 85025; 99284; J7030

== ENCOUNTER 2024-03-11 16:45 | Emergency (ER) | payer SELFPAY ==
[2024-03-11 17:22] VITALS: BP 143/90; PULSE 109
[2024-03-11] MEDS: cefTRIAXone 1 GM, Lidocaine 1% 2.1 ML IM ONE (17:35)
== END 2024-03-11 17:44 | disposition home or self-care (01) ==
LOC: DL.ED 16:45
DX: J02.0 Streptococcal pharyngitis (principal); I10 Essential (primary) hypertension; K21.9 Gastro-esophageal reflux disease without esophagitis; Z86.16 Personal history of COVID-19; Z90.49 Acquired absence of other specified parts of digestive tract; Z79.899 Other long term (current) drug therapy
CPT/HCPCS: 96372; 99282; J0696; J3490

== ENCOUNTER 2024-11-15 13:57 | Emergency (ER) | payer SELFPAY ==
[2024-11-15 14:11] LABS: HEMATOCRIT 37.5 % (37.0-47.0); HEMOGLOBIN 12.6 g/dL (12.0-16.0); MEAN CORPUSCULAR HEMOGLOBIN 28.2 pg (27.0-34.0); MEAN CORPUSCULAR HGB CONC 33.6 g/dL (33.0-35.0); MEAN CORPUSCULAR VOLUME 83.9 fL (80-100); PLATELET COUNT,PLT 417 10^3/uL (150-450); RED BLOOD CELL COUNT 4.47 10^6/uL (4.2-5.4); WHITE BLOOD CELL COUNT,WBC 15.3 10^3/uL (5.0-10.0)
[2024-11-15 14:16] LABS: LYMPHOCYTES PERCENT AUTO 19.6 % (20.5-50.1); MONOCYTES PERCENT AUTO 7.1 % (2-8); NEUTROPHILS PERCENT AUTO 71.5 % (42.2-75.2)
[2024-11-15 14:17] LABS: BASOPHILS PERCENT AUTO 0.3 % (0.0-1.0); EOSINOPHILS PERCENT AUTO 1.5 % (1.0-3.0)
[2024-11-15 14:26] LABS: EOSINOPHILS PERCENT MAN 2 % (1-3); LYMPHOCYTES PERCENT MAN 17 % (20-50); MONOCYTES PERCENT MAN 8 % (2-8); SEG NEUTROPHILS PERCENT MAN 73 % (42-75)
[2024-11-15 14:28] LABS: ALBUMIN 3.2 g/dL (3.4-5.0); ANION GAP 13.3 mEq/L (7-13); BILIRUBIN TOTAL 0.3 mg/dL (0.2-1.0); BUN/CREATININE RATIO 26.8 (No establ ref range); CALCIUM 8.6 mg/dL (8.5-10.1); CREATININE 0.56 mg/dL (0.55-1.02); EST CRCL DRUG DOSING (CG) 102.51 mL/min; POTASSIUM,K 3.3 mmol/L (3.5-5.1); PROTEIN TOTAL,TP 6.6 g/dL (6.4-8.2)
[2024-11-15 14:29] LABS: A/G RATIO 0.94; INR 0.9 (0.9-1.2); PROTHROMBIN TIME 9.6 SEC (9.0-12.0)
[2024-11-15] MEDS: Potassium Chloride 10 MEQ Tab.ER PO ONE (15:07)
[2024-11-15] MEDS: Magnesium Oxide 400 MG Tab PO ONE (15:13)
[2024-11-15 15:20] VITALS: BP 128/88; PULSE 69
== END 2024-11-15 15:20 | disposition home or self-care (01) ==
LOC: DL.ED 13:57
DX: K60.2 Anal fissure, unspecified (principal); I10 Essential (primary) hypertension; Z86.16 Personal history of COVID-19; Z90.49 Acquired absence of other specified parts of digestive tract; Z79.899 Other long term (current) drug therapy
CPT/HCPCS: 36415; 80053; 85025; 85610; 99283; A9270; 99284

== ENCOUNTER 2025-03-15 08:14 | Emergency (ER) | payer SELFPAY ==
[~2025-03-15 08:14] MED LIST: Sodium Chloride 0.9% 10 ML Syringe FLUSH PRN
[2025-03-15 08:21] LABS: BASOPHILS PERCENT AUTO 0.2 % (0.0-1.0); EOSINOPHILS PERCENT AUTO 3.4 % (1.0-3.0); LYMPHOCYTES PERCENT AUTO 24.3 % (20.5-50.1); MONOCYTES PERCENT AUTO 7.7 % (2-8); NEUTROPHILS PERCENT AUTO 64.4 % (42.2-75.2); PLATELET COUNT,PLT 296 10^3/uL (150-450); RED BLOOD CELL COUNT 5.03 10^6/uL (4.2-5.4); WHITE BLOOD CELL COUNT,WBC 8.6 10^3/uL (5.0-10.0)
[2025-03-15] MEDS: Ondansetron 4 MG/2 ML SDV IVPUSH ONE (08:23)
[2025-03-15] MEDS: fentaNYL 100 MCG/2 ML SDV IVPUSH ONE (08:23)
[2025-03-15 08:47] LABS: INR 0.9 (0.9-1.2)
[2025-03-15] MEDS: diphenhydrAMINE 50 MG/ML SDV IVPUSH ONE (08:47)
[2025-03-15 08:52] LABS: A/G RATIO 1.1; ALANINE AMINOTRANSFERASE,ALT 41 U/L (14-59); ASPARTATE AMNIOTRANSFERASE,AST 24 U/L (15-37); BILIRUBIN TOTAL 0.6 mg/dL (0.2-1.0); BLOOD UREA NITROGEN,BUN 17 mg/dL (7-18); CARBON DIOXIDE,CO2 28 mmol/L (21-32); CHLORIDE,CL 105 mmol/L (98-107); CREATININE 0.59 mg/dL (0.55-1.02); ESTIMATED GFR 104 mL/min (>=60); GLUCOSE RANDOM 145 mg/dL (70-99); POTASSIUM,K 3.6 mmol/L (3.5-5.1); PROTEIN TOTAL,TP 7.2 g/dL (6.4-8.2); SODIUM,NA 143 mmol/L (136-145)
[2025-03-15] MEDS: Ketorolac 30 MG/ML SDV IVPUSH ONE (09:02)
[2025-03-15 10:53] VITALS: BP 121/79; PULSE 74
== END 2025-03-15 10:48 | disposition home or self-care (01) ==
LOC: DL.ED 08:14
DX: G43.009 Migraine without aura, not intractable, without status migrainosus (principal); I10 Essential (primary) hypertension; Z86.16 Personal history of COVID-19; Z79.899 Other long term (current) drug therapy; R42 Dizziness and giddiness
CPT/HCPCS: 36415; 70450; 80053; 83735; 84484; 85025; 85610; 96374; 96375; 99285; A9270; J1200; J1885; J2405; J2765; J3010; 99284

== ENCOUNTER 2025-05-13 18:33 | Emergency (ER) | payer SELFPAY ==
[2025-05-13] MEDS: Ketorolac 30 MG/ML SDV IM ONE (19:57)
[2025-05-13 21:42] VITALS: BP 125/92; PULSE 85
== END 2025-05-13 21:22 | disposition home or self-care (01) ==
LOC: DL.ED 18:33
DX: S99.912A Unspecified injury of left ankle, initial encounter (principal); I10 Essential (primary) hypertension; M19.90 Unspecified osteoarthritis, unspecified site; Z79.899 Other long term (current) drug therapy; Z86.16 Personal history of COVID-19; Z90.49 Acquired absence of other specified parts of digestive tract; X50.1XXA Overexertion from prolonged static or awkward postures, initial encounter; W10.9XXA Fall (on) (from) unspecified stairs and steps, initial encounter
CPT/HCPCS: 73610-LT; 96372; 99283; A9270-GY; J1885